=== PATIENT | male | born 1970 | race Caucasian/White ===

== ENCOUNTER 2017-03-25 12:32 | Emergency (ER) | payer BC, OTHER ==
[~2017-03-25] VITALS: Ht 193 cm; Wt 89.9 kg
[2017-03-25 12:36] VITALS: TEMP 36.5; Ht 193 cm; Wt 89.9 kg
[2017-03-25] MEDS ORDERED: SODIUM CHLORIDE 0.9% 1000ML 1,000 ML IV STA (13:22)
--- NOTE | 2017-03-25 13:29 | EMERGENCY ROOM VISIT NOTE ---
History First contact with patient: 13:10 Chief Complaint: DIZZY Stated Complaint: DIZZY, OVERALL WEIRD FEELING Nursing Triage Summary: pt reports went for walk at work had couple dizzy spells just not feeling right since . feels nauseated History of Present Illness The patient is a 46 year old male who presents to the Emergency Room with complaints of dizziness and overall "not feeling right" while taking a walk at work. The patient states he awoke this morning feeling well, and drank approximately 24 ounces of coffee and ate a granola bar on his way to work. The patient states while at work and on his lunch break at approximately 10:30, he was taking a walk. The patient states he was walking outside, but was on a flat surface. The patient states he began experiencing several dizzy spells, lightheadedness, and feeling "out of place". He states the episode lasted approximately 30-60 minutes. The patient describes feeling "weird all over". The patient states he felt as if there was not enough blood running through his body and his legs. The patient states his fingers became cold, then warm. The patient states he left work early because of the feeling. He states while driving on the [place], he contacted his PCP, Dr. Daily, to see if he had any openings. Patient states he was advised to seek care at the emergency department for his symptoms. The patient reports he may have occasionally had some symptoms over the past few weeks, but nothing like this episode. The patient denies headache, chest pain, dyspnea, abdominal pain, changes in bowel or bladder habits, burning with urination, weakness, numbness, altered mental status. The patient states approximately one week ago, he experienced a right shoulder cramp, and is concerned that this could be related. The patient states he does not typically drink much water or fluids, but he normally drinks "more coffee than I should". The patient did eat a piece of chocolate zucchini cake in addition to the granola bar this morning. The patient denies any significant medical history, and states his labs which are checked at work have always been normal. He states his cholesterol is slightly climbing upward. The patient denies any significant history or family history of heart disease. The patient admits to social alcohol use, and states he was drinking more than normal this weekend. Review of Systems A complete 10 point review of systems was reviewed with the patient with pertinent positives and negatives as per history of present illness. All else were negative. Past Medical/Surgical History Inguinal hernia Social History Smoking Status: Never Smoker Smokeless Tobacco Use: No Alcohol Use: occasionally Drug Use: none Marital Status: Housing Status: lives with family Occupation Status: employed Current/Historical Medications No Active Prescriptions or Reported Meds Allergies None Physical Exam Vital Signs Date Time Temp Pulse Resp B/P (MAP) Pulse Ox O2 Delivery O2 Flow Rate FiO2 03/25/17 15:08 74 18 129/79 97 Room Air 03/25/17 14:22 63 18 124/70 97 Room Air 03/25/17 13:37 71 03/25/17 12:36 36.5 65 18 170/79 100 Room Air Physical Exam VITALS: Vitals are noted on the nurse's note and reviewed by myself. Vital signs stable. GENERAL: This is a healthy-appearing 46-year-old white male, in no acute distress, nondiaphoretic, well-developed well-nourished. SKIN: The skin was without rashes, erythema, edema, or bruising. There is no tenting of the skin. Capillary reflex less than 2 seconds. HEAD: Normocephalic atraumatic. EARS: External auditory canals clear, tympanic membranes pearly leung without erythema or effusion bilaterally. EYES: Pupils equal round and reactive to light and accommodation. Conjunctivae without injection, sclerae without icterus. Extraocular movements intact. NOSE: Patent, turbinates without inflammation or discharge. No sinus tenderness. MOUTH: Mucous membranes moist. Tonsils are not enlarged. Pharynx without erythema or exudate. Uvula midline. Airway patent. Tongue does not deviate. NECK: Supple without nuchal rigidity. No lymphadenopathy. No thyromegaly. Cervical spine is nontender. No JVD. HEART: Regular rate and rhythm without murmurs gallops or rubs. LUNGS: Clear to auscultation bilaterally without wheezes, rales or rhonchi. No dullness to percussion. No retractions or accessory muscle use. ABDOMEN: Positive bowel sounds x 4. Normal tympanic percussion. Soft, nontender, without masses or organomegaly. Vidal sign negative. No guarding or rebound tenderness. MUSCULOSKELETAL: No muscle atrophy, erythema, or edema noted. Full range of motion without joint tenderness in all extremities. No tenderness to palpation. Normal gait. Strength 5/5 throughout. NEURO: Patient was alert and oriented to person place and time. Normal sensation to light and sharp touch. Deep tendon reflexes 2+ throughout. No focal neurological deficits. Medical Decision & Procedures ER Provider Diagnostic Interpretation: Urinalysis showed trace protein, but no hematuria or other abnormalities. Urine color was clear, yellow. Not cloudy or concentrated. Labs: CXR: FINDINGS: The lungs are clear. Cardiac silhouette is normal in size. No pleural effusions. No pneumothorax. IMPRESSION: No acute process. Laboratory Results 03/25/17 13:35 Red Blood Count 5.14, Mean Corpuscular Volume 85.6, Mean Corpuscular Hemoglobin 29.0, Mean Corpuscular Hemoglobin Concent 33.9, Mean Platelet Volume 9.7, Neutrophils (%) (Auto) 69.3, Lymphocytes (%) (Auto) 22.1, Monocytes (%) (Auto) 7.6, Eosinophils (%) (Auto) 0.4, Basophils (%) (Auto) 0.4, Neutrophils # (Auto) 3.36, Lymphocytes # (Auto) 1.07, Monocytes # (Auto) 0.37, Eosinophils # (Auto) 0.02, Basophils # (Auto) 0.02 03/25/17 13:35 Test 03/25/17 13:22 03/25/17 13:35 Creatine Kinase MB Ratio (0-3.0) White Blood Count 4.85 K/uL (4.8-10.8) Red Blood Count 5.14 M/uL (4.7-6.1) Hemoglobin 14.9 g/dL (14.0-18.0) Hematocrit 44.0 % (42-52) Mean Corpuscular Volume 85.6 fL (80-100) Mean Corpuscular Hemoglobin 29.0 pg (25-34) Mean Corpuscular Hemoglobin Concent 33.9 g/dl (32-36) Platelet Count 253 K/uL (130-400) Mean Platelet Volume 9.7 fL (7.4-10.4) Neutrophils (%) (Auto) 69.3 % Lymphocytes (%) (Auto) 22.1 % Monocytes (%) (Auto) 7.6 % Eosinophils (%) (Auto) 0.4 % Basophils (%) (Auto) 0.4 % Neutrophils # (Auto) 3.36 K/uL (1.4-6.5) Lymphocytes # (Auto) 1.07 K/uL (1.2-3.4) Monocytes # (Auto) 0.37 K/uL (0.11-0.59) Eosinophils # (Auto) 0.02 K/uL (0-0.5) Basophils # (Auto) 0.02 K/uL (0-0.2) RDW Standard Deviation 40.6 fL (36.4-46.3) RDW Coefficient of Variation 13.0 % (11.5-14.5) Immature Granulocyte % (Auto) 0.2 % Immature Granulocyte # (Auto) 0.01 K/uL (0.00-0.02) Anion Gap 4.0 mmol/L (3-11) Est Creatinine Clear Calc Drug Dose 101.9 ml/min Estimated GFR () 92.2 Estimated GFR (Non- 79.5 BUN/Creatinine Ratio 13.3 (10-20) Calcium Level 8.9 mg/dl (8.5-10.1) Magnesium Level 2.2 mg/dl (1.8-2.4) Total Bilirubin 0.6 mg/dl (0.2-1) Aspartate Amino Transf (AST/SGOT) 21 U/L (15-37) Alanine Aminotransferase (ALT/SGPT) 20 U/L (12-78) Alkaline Phosphatase 71 U/L (45-117) Creatine Kinase MB 2.0 ng/ml (0.5-3.6) Troponin I < 0.015 ng/ml (0-0.045) Total Protein 7.7 gm/dl (6.4-8.2) Albumin 4.4 gm/dl (3.4-5.0) Globulin 3.3 gm/dl (2.5-4.0) Albumin/Globulin Ratio 1.3 (0.9-2) Thyroid Stimulating Hormone (TSH) 1.970 uIu/ml (0.300-4.500) Lyme Disease IgG Antibody NEG (NEG) Lyme Disease IgM Antibody NEG (NEG) Medications Administered Medications (Trade) Dose Ordered Sig/Alex Route Start Time Stop Time Status Last Admin Dose Admin Sodium Chloride 1,000 ml @ 999 mls/hr Q1H1M STAT IV 8/28/17 13:22 03/25/17 14:22 DC 03/25/17 13:39 999 MLS/HR ECG Indication: weakness, other (dizziness) Rate (beats per minute): 59 Rhythm: sinus bradycardia Findings: no acute ischemic change, no ectopy Comparison ECG Date: no prior available ED Course The patient was seen and evaluated as above. Labs, EKG, chest x-ray, urinalysis were ordered. These were reviewed by myself. I did review all results with the patient at bedside. The patient was given 1 L normal saline solution. The patient states he was feeling somewhat better, denies any ongoing dizziness , lightheadedness, or "weird feeling". Discharge instructions were reviewed. The patient was discharged home in good condition. Medical Decision Throughout the course of the patient's care, I did consider etiologies including : vasovagal syncope, dizziness, vertigo, dehydration, urinary tract infection, cardiac etiology of symptoms including bradycardia or acute coronary syndrome, pulmonary etiology of symptoms including pneumonia, malignancy, and others. Based on the patient's symptoms and quick resolution, I do suspect this was more of a dehydration response. The patient's lab work does not fully support this, however based on the patient's history of increased alcohol use this weekend and decreased hydration with fluids such as water, I do suspect that the patient was feeling some residual effects. I encouraged the patient to follow up with his PCP for further evaluation and possible ongoing lab work. Medication Reconcilliation Current Medication List: was personally reviewed by me Blood Pressure Screening Blood pressure disposition: Elevated BP felt to be situational Impression Primary Impression: Dizziness Departure Information Dispostion Home / Self-Care Condition GOOD Prescriptions No Active Prescriptions or Reported Meds Referrals Kiko Daily M.D. Patient Instructions ED Dizziness [facility], [facility] Additional Instructions You were seen in the emergency department for dizziness. I do suspect that this was related to your fluid intake today. We did rule out possible cardiac or renal causes of your dizziness. We also ruled out Lyme disease with labs. Please stay well-hydrated. Drink plenty of fluids and avoid caffeine as much as possible. Please avoid excessive physical activity until you have followed up with your PCP. Please follow-up with your PCP this week for further evaluation and recheck of your symptoms. Please return to the emergency department for worsening dizziness, lightheadedness, passing out, chest pain, trouble breathing, or other concerning symptoms.
[2017-03-25 13:53] LABS: BASO % 0.4 %; BASO ABS # 0.02 K/uL (0-0.2); COMPLETE YES; EOS % 0.4 %; IG% 0.2 %; LYMPH % 22.1 %; LYMPH ABS # 1.07 K/uL (1.2-3.4); MEAN CELL VOLUME 85.6 fL (80-100); MEAN CORPUSCULAR HGB CONC 33.9 g/dl (32-36); MEAN PLATELET VOLUME 9.7 fL (7.4-10.4); MONO % 7.6 %; NEUT % 69.3 %; PLATELET COUNT 253 K/uL (130-400); RED BLOOD COUNT 5.14 M/uL (4.7-6.1); WHITE BLOOD COUNT 4.85 K/uL (4.8-10.8)
[2017-03-25 14:16] LABS: ALT/SGPT 20 U/L (12-78); AST/SGOT 21 U/L (15-37); BLOOD UREA NITROGEN 15 mg/dl (7-18); BUN/CREATININE RATIO 13.3 (10-20); CALCIUM 8.9 mg/dl (8.5-10.1); CARBON DIOXIDE 32 mmol/L (21-32); CHLORIDE 103 mmol/L (98-107); GLUCOSE 97 mg/dl (70-99); MAGNESIUM 2.2 mg/dl (1.8-2.4); POTASSIUM 3.7 mmol/L (3.5-5.1); SODIUM 139 mmol/L (136-145)
[2017-03-25 14:27] LABS: ALB/GLOB RATIO 1.3 (0.9-2); ALKALINE PHOSPHATASE 71 U/L (45-117)
--- NOTE | 2017-03-25 14:28 | DIAGNOSTIC IMAGING REPORT ---
CHEST 2 VIEWS ROUTINE HISTORY: dizziness, pre-syncope COMPARISON: None. FINDINGS: The lungs are clear. Cardiac silhouette is normal in size. No pleural effusions. No pneumothorax. IMPRESSION: No acute process. Electronically signed by: Geovani Bauman M.D. 03/25/2017 2:27 PM Dictated Date/Time: 03/25/2017 2:26 PM
[2017-03-25 14:57] LABS: LYME DISEASE AB IGG NEG (NEG); LYME DISEASE AB IGM NEG (NEG)
[2017-03-25 15:08] VITALS: BP 129/79; PULSE 74; O2SAT 97
== END 2017-03-25 15:35 | disposition home or self-care (01) ==
LOC: C.EDB 12:34
DX: R42 Dizziness and giddiness (principal)

== ENCOUNTER → 2017-04-30 | Outpatient (CLI) | payer OTHER | END | disposition home or self-care (01) | LOC: C.LABMFLN 13:12 | PROVIDERS: ATTEND Family Medicine | DX: J02.9 Acute pharyngitis, unspecified (principal) ==

== ENCOUNTER → 2017-05-17 | Outpatient (CLI) | payer OTHER | END | disposition home or self-care (01) | LOC: C.LABMFLN 08:32 | PROVIDERS: ATTEND Family Medicine | DX: J02.9 Acute pharyngitis, unspecified (principal); R68.89 Other general symptoms and signs ==